=== PATIENT | female | born 1955 | race Caucasian/White ===

== ENCOUNTER 2018-09-25 19:46 | Inpatient (IN) | payer MEDICARE, BC ==
[2018-09-25 20:20] LABS: #Basophils 0.1 thou/uL (0.0-0.2); #Lymphocytes 2.5 thou/uL (1.20-3.40); %Basophils 0.7 % (0.0-1.0); %Eosinophils 0.2 % (0.0-10.0); %Lymphocytes 16.8 % (21.0-51.0); %Monocytes 6.8 % (0.0-10.0); %Neutrophils 75.5 % (42.0-75.0); Hemoglobin 11.5 g/dL (12.0-16.0); Mean Corpuscular Hemoglobin 33.2 pg (27.0-31.0); Mean Platelet Volume 8.4 fL (7.4-10.4); Platelet Count 354 thou/uL (130-400); RBC Distribution Width 10.7 % (11.5-14.5); Red Blood Cell (RBC) Count 3.48 mill/uL (4.20-5.40); White Blood Cell (WBC) Count 14.5 thou/uL (4.8-10.8)
[2018-09-25] MEDS ORDERED: Lidocaine 1% w/Epinephrine 1:100K 20 ML VIAL ONE (20:25)
[2018-09-25] MEDS ORDERED: KETAMINE 100 MG/ML (5ML VIAL) ONE (20:25)
--- NOTE | 2018-09-25 20:39 | RAD ---
CHEST ONE VIEW: 09/25/18 INDICATION: Fell at home with left sided chest pain. COMPARISON: Prior exam dated 07/31/18. FINDINGS: There is a moderate sized left sided pneumothorax. There is mildly displaced posterior left 6th rib. There is a nondisplaced left fourth rib fracture. T he right lung is clear. The heart size is normal. ACDF is seen involving the lower cervical spine. IMPRESSION: Left posterior 4th and 6th rib fractures with a moderate sized left pneumothorax. Findings were call ed to Dr. Tovar at 8:22 p.m. on 09/25/18. Code CR POS: [facility]
[2018-09-25 20:41] LABS: ALT (SGPT) 15 U/L (8-55); AST (SGOT) 21 U/L (5-34); Albumin 4.7 g/dL (3.4-4.8); Alkaline Phosphatase 86 U/L (40-150); Anion Gap 16 mmol/L (10-20); BUN (Urea Nitrogen) 25 mg/dL (9.8-20.1); Bilirubin, Total 0.4 mg/dL (0.2-1.2); Calc. Creatinine Clearance 0 mL/min (70-130); Calcium 9.3 mg/dL (7.8-10.44); Carbon Dioxide 21 mmol/L (23-31); Chloride 103 mmol/L (98-107); Estimated GFR-MDRD 24; Globulin 3.4 g/dL (2.4-3.5); Glucose 101 mg/dL (80-115); Potassium 3.5 mmol/L (3.5-5.1); Protein, Total 8.1 g/dL (6.0-8.3); Sodium 136 mmol/L (136-145)
[2018-09-25 20:46] LABS: CKMB 2.8 ng/mL (0-6.6); Troponin I Less than 0.010 ng/mL (< 0.028)
[2018-09-25] MEDS ORDERED: Dextrose 50% Abboject 50 ML SYRINGE SLOW IVP PRN (20:52)
[2018-09-25] MEDS ORDERED: Ondansetron PF 4 MG/2 ML Vial IVP PRN (20:52)
[2018-09-25] MEDS ORDERED: Dextrose 5% in Water 1,000 ML IV PRN (20:52)
[2018-09-25] MEDS ORDERED: Ondansetron ODT 4 MG TAB PO PRN (20:52)
[2018-09-25] MEDS ORDERED: Rib Fracture Protocol PO SCH (21:00)
[2018-09-25] MEDS ORDERED: Senokot S 8.6-50 MG TAB PO SCH ×2 (21:00→23:59)
[2018-09-25] MEDS ORDERED: HYDROcodone/Acetaminophen 5/325 mg Tablet PO PRN (21:01)
[2018-09-25] MEDS ORDERED: Lorazepam 2 MG/ML VIAL ONE (21:07)
[2018-09-25] MEDS ORDERED: Morphine 2 MG/ML SYRINGE ONE (21:18)
[2018-09-25] MEDS ORDERED: Ondansetron PF 4 MG/2 ML Vial ONE (21:33)
[2018-09-25] MEDS ORDERED: Cyclobenzaprine 10 MG TAB ONE (21:39)
--- NOTE | 2018-09-25 21:42 | RAD ---
AP VIEW CHEST: 09/25/18 HISTORY: Status post chest tube placement. AP view chest is obtained on 09/25/18. Comparison made to previous exam from earlier in the day on 09/25/18. AP view chest demonstrates placement of a large caliber left sided chest tube. Large left sided pneum othorax has significantly decreased in size. A minimal left sided pneumothorax remains. The majority of the left lung has re-expanded. IMPRESSION: Placement of a large caliber left sided chest tube. There is some minimal left apical pneumothorax re maining, otherwise the left lung has re-expanded. The right lung is well aerated. POS: [facility]
[2018-09-25] MEDS ORDERED: Acetaminophen 325 MG TAB PO SCH (22:00)
--- NOTE | 2018-09-25 22:23 | CT ---
CT OF THE BRAIN WITHOUT CONTRAST: 09/25/18 INDICATION: History of fall at home. COMPARISON: None. FINDINGS: There is mild to moderate chronic small vessel white matter ischemic change. Septum pellucidum and third ventricle are midline. No acute infarct, hemorrhage or hydrocephalus pres ent. Skull and extracranial soft tissues appear within normal limits. 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 IMPRESSION: No acute intracranial abnormality. POS: [facility]
[2018-09-25 23:49] VITALS: BMI 20.5
[2018-09-25] MEDS ORDERED: traMADol HCl 50 MG TAB PO SCH (23:59)
[2018-09-26] MEDS: Acetaminophen 325 MG TAB PO SCH ×4 (00:31→18:09)
[2018-09-26] MEDS: HYDROcodone/Acetaminophen 10/325 mg Tablet PO PRN ×2 (01:46→08:08)
[2018-09-26] MEDS ORDERED: Amitriptyline HCl 25 MG TAB PO SCH ×2 (02:00→21:00)
--- NOTE | 2018-09-26 04:15 | HP ---
DATE OF ADMISSION: 09/25/2018 TRAUMA ACTIVATION: Not applicable. HISTORY OF PRESENT ILLNESS: Tamia De Guzman is a 62-year-old female who presented to [place] ER wit h a chief complaint of dyspnea, status post fall. Per patient, she was attempting to ambulate in her kitchen when she felt lightheaded and dizzy, causing her to fall, striking her left-sided chest and head. She denies loss of consciousness. The patient reports that over the last 2-3 days, she has be en having her blood pressure medications altered by her primary care physician. She reports the way she felt this evening is similar to previous hypotensive episodes. She denies chest pain; however, s he did endorse some nausea. She was evaluated in the emergency room and found to have multiple left- sided rib fractures with a left pneumothorax. A chest tube was placed by the ER physician with good reexpansion of the lung. Trauma Services notified and asked to admit. Upon my evaluation, the patie nt has a chief complaint of left-sided muscle spasm and dyspnea. She rates her pain as a 10/10. Of note, the patient profound was hypotensive with a systolic blood pressure in the 80s per EMS report. She did receive 600 mL of IV fluids and presented with a blood pressure in the 120s. ALLERGIES: GABAPENTIN, LYRICA, METOPROLOL, NSAIDs to include IBUPROFEN, ALEVE, and . HOME MEDICATIONS: Include atorvastatin 20 mg daily, atenolol 50 mg daily, Klonopin 1 mg b.i.d., tram adol 300 mg daily, amitriptyline 25 mg daily, Lexapro 20 mg daily, losartan 100 mg and an additional antihypertensive, the name and dosage of which the patient is unsure. PAST MEDICAL HISTORY: Significant for hypertension, anxiety, chronic pain, hyperlipidemia, depressio n, and irritable bowel syndrome. PAST SURGICAL HISTORY: Includes tubal ligation, breast biopsy, cholecystectomy, multiple left foot s urgeries, spinal surgery, hip surgery, left hand/thumb surgery, left knee surgery, right foot surgery , and right arm surgery. SOCIAL HISTORY: Patient is . She denies alcohol or illicit drug use. She is a current smoke r, 1-2 cigarettes daily. FAMILY HISTORY: Significant for father with CAD, mother with CAD, a brother with CAD and prostate ca ncer. REVIEW OF SYSTEMS: A 10-point review of systems was performed and essentially negative except as ind icated in the HPI. PHYSICAL EXAMINATION: VITAL SIGNS: Temperature 97.9, pulse 81, respiration rate 18, O2 sat 100% on 2 liters nasal cannula, blood pressure 140/80. GENERAL: Elderly-appearing female in mild distress secondary to pain. HEAD: Normocephalic. EYES: Pupils are PERRLA. Extraocular movements are intact. NECK: Supple. Trachea is midline. There is no midline tenderness to palpation. CHEST AND PULMONARY: Atraumatic with left-sided tenderness to palpation. Short inspiratory breath. Symmetric chest rise. LUNGS: Clear to auscultation bilaterally. CARDIOVASCULAR: Regular rate and rhythm. No obvious murmurs, rubs, or gallops. Midline incisional scar is noted. ABDOMEN: Soft, nontender, nondistended. Bowel sounds are positive. MUSCULOSKELETAL: Pelvis is stable. BACK: Reported as being within normal limits. EXTREMITIES: Bilateral upper extremities within normal limits. Bilateral lower extremities within n ormal limits. Pulses are 2+ bilaterally. Strength 5/5 bilaterally. NEUROLOGIC: GCS is 15 and no focal deficit is noted. LABORATORY FINDINGS: WBC 14.5, hemoglobin 11.5, hematocrit 34.9, platelet count 354. D-dimer 1.58. Sodium 136, potassium 3.5, chloride 103, carbon dioxide 21, BUN 25, creatinine 2.06, glucose 101. L actic acid 1.9. AST and ALT within normal limits. Troponin less than 0.010. BNP 54.8. EKG: Normal sinus rhythm. RADIOLOGIC FINDINGS: Initial chest x-ray with multiple left-sided rib fractures and a [id number] rge left-sided pneumothorax. A repeat EKG, status post chest tube shows a small residual apical pneu mothorax and left-sided rib fractures. CT of the brain was negative for acute intracranial abnormali ty. ASSESSMENT: 1. Status post fall. 2. Presyncope/syncope likely secondary to orthostatic hypotension. 3. Elevated D-dimer, unlikely pulmonary embolism as dyspnea occurred status post fall, but not prior . 4. Acute kidney injury, present on admission. 5. History of hypertension with intermittent hypotension and possible orthostatic hypotension. 6. History of anxiety and depression. 7. History of chronic pain. PLAN: Admit to Trauma Services. Importance of incentive spirometry and pulmonary toileting discusse d with the patient extensively. Given patient's chronic Ultram use and chronic pain with reported al lergy to NSAIDs will adjust rib fracture protocol accordingly. Repeat chest x-ray in a.m. labs. Giv en patient's hypotension on initial evaluation by EMS, we will hold antihypertensives at this time an d restart them with closer observation and monitoring. Plan for admission was discussed with the pat ient and family at bedside and all questions were answered at the time of this dictation. Trauma att ending has been notified of admission.
[2018-09-26 05:57] LABS: #Basophils 0.2 thou/uL (0.0-0.2); #Lymphocytes 3.8 thou/uL (1.20-3.40); #Monocytes 0.9 thou/uL (0.11-0.59); #Neutrophils 6.5 thou/uL (1.40-6.50); %Basophils 1.4 % (0.0-1.0); %Eosinophils 0.3 % (0.0-10.0); %Lymphocytes 33.3 % (21.0-51.0); %Monocytes 7.9 % (0.0-10.0); %Neutrophils 57.2 % (42.0-75.0); Hemoglobin 8.8 g/dL (12.0-16.0); Mean Corpuscular HGB CONC 33.2 g/dL (32.0-36.0); Mean Corpuscular Hemoglobin 33.6 pg (27.0-31.0); Platelet Count 269 thou/uL (130-400); RBC Distribution Width 10.8 % (11.5-14.5); Red Blood Cell (RBC) Count 2.63 mill/uL (4.20-5.40); White Blood Cell (WBC) Count 11.4 thou/uL (4.8-10.8)
[2018-09-26 06:05] LABS: Anion Gap 9 mmol/L (10-20); BUN (Urea Nitrogen) 23 mg/dL (9.8-20.1); Calc. Creatinine Clearance 30 mL/min (70-130); Calcium 8.7 mg/dL (7.8-10.44); Carbon Dioxide 24 mmol/L (23-31); Chloride 106 mmol/L (98-107); Estimated GFR-MDRD 34; Glucose 95 mg/dL (80-115); Magnesium 2.2 mg/dL (1.6-2.6); Phosphorus 3.8 mg/dL (2.3-4.7); Potassium 3.9 mmol/L (3.5-5.1); Sodium 135 mmol/L (136-145)
[2018-09-26] MEDS: Cyclobenzaprine 10 MG TAB PO PRN ×2 (06:14→18:11)
[2018-09-26 07:46] LABS: Bilirubin Negative (Negative); Blood, Urine Negative (Negative); Clarity CLOUDY (Clear); Glucose, Urine (Dipstick) Negative (Negative); Leukocyte Small (Negative); Nitrite Positive (Negative); Protein, Urine (Dipstick) Negative (Neg-Trace); Specific Gravity, Urine 1.011 (1.002-1.036); Urobilinogen 0.2 mg/dL (0.2-1.0)
[2018-09-26 07:49] LABS: Bacteria/HPF Rare-Few HPF (None Seen); Hyaline Casts/LPF 4-6 HYALINE CAST LPF (0-3 Hyaline); Pathc Cast-AUWi Flag 0.14 (0-2.49); RBC/HPF 0-3 HPF (0-3); Squamous Epithelial 0-3 HPF (0-3)
[2018-09-26] MEDS: Senokot S 8.6-50 MG TAB PO SCH ×2 (08:06→20:14)
[2018-09-26] MEDS: Polyethylene Glycol 3350 17 GM Packet PO SCH (08:08)
[2018-09-26] MEDS ORDERED: Ascorbic Acid 500 mg Chewable Tablet PO SCH (09:00)
[2018-09-26] MEDS ORDERED: SUMAtriptan Succinate 50 MG TAB PO PRN (10:49)
[2018-09-26] MEDS: traMADol HCl 50 MG TAB PO SCH ×3 (12:03→21:25)
--- NOTE | 2018-09-26 12:10 | PRG-2 ---
DATE OF SERVICE: 09/26/2018 RESIDENT: Анна Urias M.D. ATTENDING: Sid Saini D.O. SUBJECTIVE: The patient is resting in bed on exam. The patient states she is not doing well overall and is concerned about restarting her home medications. The patient states that she is in a moderate amount of pain. Left sided chest tube is in place. Patient tolerating PO. OBJECTIVE: VITAL SIGNS: Temperature 98.1, pulse 76, respirations 17-24, O2 saturation 100 % on room air, BP 107/60. GENERAL: No acute distress, the patient is resting in bed. RESPIRATORY: Bilateral symmetrical chest rise, nonlabored breathing, clear to auscultation bilaterally, chest tube in place, hooked up to suction. CARDIOVASCULAR: Regular rate and rhythm. No murmurs, rubs or gallops. ABDOMEN: Soft, nontender, nondistended. NEUROLOGIC: Nonfocal exam. PSYCHIATRIC: Alert and oriented x3. LABORATORY DATA: WBC 11.4, hemoglobin 8.8, hematocrit 26.6, platelet 269,000. Sodium 135, potassium 3.9, chloride 106, carbon dioxide 24, anion gap 9, BUN 23 , creatinine 1.54. Calcium, phosphorus and magnesium within normal limits. ASSESSMENT: 1. Status post fall, found to have left posterior fourth and sixth rib fractures with a moderate sized left pneumothorax. 2. Acute kidney injury, resolving. 3. History of chronic pain. 4. History of anxiety and depression. 5. History of hypertension with intermittent hypotension and possible orthostatic hypotension. 6. Acute traumatic pain. PLAN: The patient's pain medications have been adjusted and the patient will be getting Tylenol and Ultram scheduled. The patient's home medications have been reconciled and restarted. Deep venous thrombosis prophylaxis initiated. Put chest tube to water seal. Due to the patient's drop in hemoglobin, the patient was started on iron and vitamin C b.i.d. The patient will be getting a repeat chest x-ray tomorrow morning. Physical and Occupational Therapy have been consulted to work with the patient. Continue to encourage incentive spirometry and pulmonary toileting. The patient has been started on a bowel regimen. We will follow up BMP with tomorrow's labs to see if CHICA is resolving , currently already improved. The patient was seen and evaluated by Dr. Saini at the bedside during rounds. All questions were asked and answered and the patient was in agreement with the plan. MTDD
[2018-09-26] MEDS: Morphine 2 MG/ML SYRINGE SLOW IVP PRN (20:07)
[2018-09-26] MEDS: Amitriptyline HCl 25 MG TAB PO SCH (20:14)
[2018-09-26] MEDS: clonazePAM 1 MG TAB PO SCH (20:14)
[2018-09-26] MEDS: Heparin 5,000 UNITS/ML VIAL SC SCH (20:15)
[2018-09-26] MEDS: Sulfameth/Trimethoprim DS 800-160mg TAB PO SCH (21:26)
[2018-09-26] MEDS: Ascorbic Acid 500 mg Chewable Tablet PO SCH (21:46)
[2018-09-27] MEDS: Acetaminophen 325 MG TAB PO SCH ×4 (00:22→17:32)
[2018-09-27] MEDS: traMADol HCl 50 MG TAB PO SCH ×4 (04:15→21:51)
[2018-09-27 07:09] LABS: #Lymphocytes 4.5 thou/uL (1.20-3.40); #Neutrophils 4.9 thou/uL (1.40-6.50); %Basophils 1.8 % (0.0-1.0); %Eosinophils 1.7 % (0.0-10.0); %Monocytes 9.2 % (0.0-10.0); %Neutrophils 45.3 % (42.0-75.0); Hemoglobin 9.7 g/dL (12.0-16.0); Mean Corpuscular HGB CONC 33.3 g/dL (32.0-36.0); Mean Corpuscular Hemoglobin 33.8 pg (27.0-31.0); Mean Platelet Volume 8.2 fL (7.4-10.4); Platelet Count 282 thou/uL (130-400); RBC Distribution Width 10.9 % (11.5-14.5); Red Blood Cell (RBC) Count 2.87 mill/uL (4.20-5.40); White Blood Cell (WBC) Count 10.8 thou/uL (4.8-10.8)
[2018-09-27 07:10] LABS: #Basophils 0.2 thou/uL (0.0-0.2); #Eosinphils 0.2 thou/uL (0.0-0.7)
[2018-09-27 07:27] LABS: Anion Gap 13 mmol/L (10-20); BUN (Urea Nitrogen) 12 mg/dL (9.8-20.1); Calc. Creatinine Clearance 46 mL/min (70-130); Calcium 8.4 mg/dL (7.8-10.44); Carbon Dioxide 21 mmol/L (23-31); Chloride 106 mmol/L (98-107); Estimated GFR-MDRD 56; Glucose 82 mg/dL (80-115); Phosphorus 3.2 mg/dL (2.3-4.7); Potassium 3.8 mmol/L (3.5-5.1); Sodium 136 mmol/L (136-145)
--- NOTE | 2018-09-27 08:03 | RAD ---
CHEST 1 VIEW: Date: 09/27/18 INDICATION: Left-sided pneumothorax. COMPARISON: Prior exam dated 09/25/18. IMPRESSION: Left-sided thoracostomy tube has been repositioned and projects near the midline. Small residual left apical pneumothorax remains. Left-sided chest wall emphysema is again seen. Chronic lung changes are similar. IMPRESSION: 1. Persistent small left apical pneumothorax. 2. Left-sided thoracostomy tube. 3. Left chest wall emphysema. POS: [facility]
[2018-09-27] MEDS: Ascorbic Acid 500 mg Chewable Tablet PO SCH ×2 (08:26→20:25)
[2018-09-27] MEDS: Atorvastatin Calcium 20 MG TAB PO SCH (08:26)
[2018-09-27] MEDS: clonazePAM 1 MG TAB PO SCH ×2 (08:26→20:26)
[2018-09-27] MEDS: Escitalopram Oxalate 20 mg Tablet PO SCH (08:27)
[2018-09-27] MEDS: Heparin 5,000 UNITS/ML VIAL SC SCH ×2 (08:27→20:26)
[2018-09-27] MEDS: Senokot S 8.6-50 MG TAB PO SCH ×2 (08:27→20:27)
[2018-09-27] MEDS: Polyethylene Glycol 3350 17 GM Packet PO SCH (08:28)
[2018-09-27] MEDS: Sulfameth/Trimethoprim DS 800-160mg TAB PO SCH ×2 (08:37→20:27)
[2018-09-27] MEDS: Atenolol 50 MG TAB PO SCH (08:40)
[2018-09-27] MEDS ORDERED: Losartan 25 MG TAB PO SCH (09:00)
--- NOTE | 2018-09-27 10:19 | PRG-2 ---
DATE OF SERVICE: 09/27/2018 RESIDENT: Dr. Анна Urias ATTENDING: Dr. Sid Saini SUBJECTIVE: The patient is a 62-year-old female status post fall, found to have multiple left-sided rib fractures and moderate to large left-sided pneumothorax, now resolving with chest tube in place. On exam today the patient is resting comfortably in bed. The patient states she slept much better last night. The patient states that her pain is improved from yesterday. She reports pain is 4-5/10 and much more tolerable. The patient states that she participated in PT/OT yesterday where it was decided that she only needs physical therapy. The patient is tolerating p.o. OBJECTIVE: VITAL SIGNS: Temperature 98.3, pulse 78, respirations 16, O2 saturation 99% on room air, BP 115/67. GENERAL: No acute distress, resting in bed. RESPIRATORY: Bilateral symmetrical chest rise, nonlabored breathing. Clear to auscultation bilaterally, chest tube in place, water seal. CARDIOVASCULAR: Regular rate and rhythm. No murmurs, rubs, or gallops. ABDOMEN: Soft, nontender, nondistended. NEUROLOGIC: Nonfocal exam. PSYCHIATRIC: Normal mood and affect. LABORATORY DATA: WBCs 10.8, hemoglobin 9.7, hematocrit 29.2, platelets 282. Sodium 136, potassium 3.8, BUN 12, creatinine 0.99, Calcium, phosphorus, magnesium within normal limits. Radiological findings; persistent small left apical pneumothorax, left-sided thoracostomy tube, left chest wall emphysema. ASSESSMENT: 1. Status post fall with left fourth through sixth rib fractures with moderate sized left pneumothorax with chest tube in place. 2. Acute kidney injury, resolved. 3. History of chronic pain. 4. History of anxiety, depression. 5. History of hypertension with intermittent hypotension and possible orthostatic hypotension. 6. Acute traumatic pain. PLAN: The patient's pain has been adequately controlled overnight and today. We will continue monitoring pain control. Chest tube removed today with no issues or complications. The patient demonstrated use of incentive spirometry and was able to get over 1000. The patient's hemoglobin has improved. The patient will get a repeat chest x-ray tomorrow morning. The patient will continue with physical therapy. Continue to encourage incentive spirometry and pulmonary toileting. The patient was seen and evaluated by Dr. Saini. EMELIA
[2018-09-27] MEDS: Amitriptyline HCl 25 MG TAB PO SCH (20:25)
[2018-09-27] MEDS: Morphine 2 MG/ML SYRINGE SLOW IVP PRN (21:51)
[2018-09-28] MEDS ORDERED: Acetaminophen 500 MG TAB PO SCH (00:30)
[2018-09-28] MEDS: Acetaminophen 325 MG TAB PO SCH (00:50)
[2018-09-28] MEDS: traMADol HCl 50 MG TAB PO SCH ×2 (04:57→09:23)
[2018-09-28] MEDS: Acetaminophen 500 MG TAB PO SCH ×2 (06:11→11:47)
[2018-09-28 07:39] VITALS: TEMP 98
--- NOTE | 2018-09-28 08:04 | RAD ---
PORTABLE CHEST 1 VIEW: Date: 09/28/18 Time: 0715 hours HISTORY: Chest tube removal. FINDINGS/IMPRESSION: Comparison made with exam of previous day. There has been interval removal of the left-sided chest tube. A tiny left apical pneumothorax is pres ent. There is subcutaneous emphysema in the left lateral chest wall. Remainder of exam is otherwise s table. POS: [facility]
[2018-09-28] MEDS ORDERED: Furosemide 20 MG/2 ML VIAL SLOW IVP SCH (08:45)
[2018-09-28] MEDS: Atenolol 50 MG TAB PO SCH (09:08)
[2018-09-28] MEDS: Escitalopram Oxalate 20 mg Tablet PO SCH (09:23)
[2018-09-28] MEDS: Ascorbic Acid 500 mg Chewable Tablet PO SCH (09:23)
[2018-09-28] MEDS: Atorvastatin Calcium 20 MG TAB PO SCH (09:23)
[2018-09-28] MEDS: clonazePAM 1 MG TAB PO SCH (09:23)
[2018-09-28] MEDS: Sulfameth/Trimethoprim DS 800-160mg TAB PO SCH (09:23)
[2018-09-28] MEDS: Senokot S 8.6-50 MG TAB PO SCH (09:24)
[2018-09-28] MEDS: Heparin 5,000 UNITS/ML VIAL SC SCH (09:24)
[2018-09-28] MEDS: Polyethylene Glycol 3350 17 GM Packet PO SCH (09:30)
[2018-09-28 11:12] VITALS: BP 127/76
--- NOTE | 2018-09-28 17:50 | EKG ---
Test Reason : DYSPNEA Blood Pressure : / mmHG Vent. Rate : 079 BPM Atrial Rate : 079 BPM P-R Int : 128 ms QRS Dur : 076 ms QT Int : 388 ms P-R-T Axes : 042 075 079 degrees QTc Int : 444 ms Normal sinus rhythm Normal ECG Confirmed by SASCHA DOWNING ([id number]), science editor ELIZABETH RUSSELL ([id number]) on 09/28/2018 5:49:09 PM Referred By: Confirmed By:SASCHA DOWNING
--- NOTE | 2018-09-29 01:03 | DIS ---
DATE OF ADMISSION: 09/25/2018 DATE OF DISCHARGE: 09/28/2018 ADMISSION DIAGNOSES: 1. Status post fall. 2. Presyncope likely secondary to orthostatic hypotension. 3. Acute kidney injury present on admission. 4. History of hypertension. 5. History of anxiety and depression. 6. History of chronic pain. DISCHARGE DIAGNOSES: 1. Status post fall. 2. Presyncope likely secondary to orthostatic hypotension. 3. Acute kidney injury present on admission. 4. History of hypertension. 5. History of anxiety and depression. 6. History of chronic pain. CONSULTANTS: None. PROCEDURES: Chest tube placement on 09/25/2018 in the emergency room. HOSPITAL COURSE: Tamia De Guzman is a 62-year-old female who presented to [place] ER status post fa ll at home. Per patient, she has been having multiple ulcerations to her antihypertensives resulting in erratic blood pressures. Patient felt lightheaded and dizzy, falling and striking her left chest . She was seen and evaluated in the emergency room and found to have a significant pneumothorax. A chest tube was placed with good reexpansion of the lung. She was admitted by trauma services for tee n management and further treatment. Post-injury day #3, her chest tube was replaced. On 09/28/2018, a repeat chest x-ray was performed, which demonstrated a small apical pneumothorax; however, the pat ient was hemodynamically stable and on room air. Of note, in importance her blood pressure remained within normal limits despite not receiving any antihypertensives during her hospitalization. Because of her difficulty with blood pressure control and residual pneumothorax, patient was recommended for [facility] facility. She was accepted to [facility] and medically stable for disch arge on 09/28/2018. DISCHARGE DISPOSITION: care home facility. DISCHARGE CONDITION: Good. PHYSICAL EXAMINATION: VITAL SIGNS: Temperature 98.0, pulse 94, respirations 18, O2 sat 97% on room air, blood pressure 127 /76. GENERAL: Elderly appearing female in no acute distress, sitting in bed. PULMONARY: Normal work of breathing, symmetric rise. CARDIOVASCULAR: Regular rate and rhythm. GASTROINTESTINAL: Abdomen is soft, nontender, nondistended. MUSCULOSKELETAL: Moves all extremities x4. NEUROLOGIC: No focal deficit is noted. DISCHARGE INSTRUCTIONS: Discharge instructions were provided to the patient, who vocalized her under standing. She is to leave her chest tube dressing in place for an additional 24 hours. At that time , she may remove it and covered the area with a simple bandage. She should have a repeat chest x-ray on 09/29/2018 and a repeat chest x-ray in approximately 2 weeks. She may resume activities as kameron ated. These instructions were provided to both the patient and the accepting facility. DISCHARGE MEDICATIONS: Discharge medications as documented in the electronic medical record a list o f which was provided to the accepting facility. FOLLOWUP APPOINTMENTS: Patient should follow up with her primary care provider after being discharge d from her [facility] facility for blood pressure management. She should follow up with Trauma Services in approximately 2 weeks with a repeat chest x-ray prior to her appointment. This is merely a summary of the patient's hospitalization, for more in depth information, please see her medical re cord in its entirety.
== END 2018-09-28 14:37 | disposition swing bed (61) | DRG 200 ==
LOC: ERS 19:46 → SJJU 20:40
PROVIDERS: ADMIT Surgery; ATTEND Surgery
PROC: 0W9B30Z Drainage of Left Pleural Cavity with Drainage Device, Percutaneous Approach (ICD-10-PCS; principal; 2018-09-25)
DX: S27.0XXA Traumatic pneumothorax, initial encounter (principal); S22.42XA Multiple fractures of ribs, left side, initial encounter for closed fracture; N17.9 Acute kidney failure, unspecified; I95.1 Orthostatic hypotension; I10 Essential (primary) hypertension; E78.5 Hyperlipidemia, unspecified; K58.9 Irritable bowel syndrome, unspecified; G89.29 Other chronic pain; F32.9 Major depressive disorder, single episode, unspecified; F41.9 Anxiety disorder, unspecified; Z79.1 Long term (current) use of non-steroidal anti-inflammatories (NSAID); Z88.8 Allergy status to other drugs, medicaments and biological substances; Z88.6 Allergy status to analgesic agent; W18.30XA Fall on same level, unspecified, initial encounter; Y92.000 Kitchen of unspecified non-institutional (private) residence as the place of occurrence of the external cause
CPT/HCPCS: 32551; 36415; 70450; 71045; 80048; 80053; 81003; 81015; 82553; 83605; 83735; 83880; 84100; 84484; 85025; 85379; 87077; 87086; 87186; 93005; 96374; 96375; G0390; G8978-GP-CJ; G8979-GP-CI; G8987-GO-CI; G8988-GO-CI; G8989-GO-CI; J1644; J2001; J2060; J2270; J2405

== ENCOUNTER 2018-10-17 09:13 | Outpatient (CLI) | payer MEDICARE, BC ==
--- NOTE | 2018-10-17 11:22 | RAD ---
TWO VIEW CHEST: Comparison: 10-08-18 Indication: Traumatic pneumothorax follow up. FINDINGS: There has been interval improvement with a minute residua of the left apical pneumothorax remaining o n the current exam. Right lung is clear. Chest is otherwise stable. IMPRESSION: 1. Minimal residual left apical pneumothorax persists. Smaller in volume than prior exam. 2. Re-demonstration of left rib deformities. POS: [facility]
== END 2018-10-17 09:14 | disposition home or self-care (01) ==
LOC: RAD 09:13
PROVIDERS: ATTEND Family Medicine
DX: S27.0XXD Traumatic pneumothorax, subsequent encounter (principal); M95.4 Acquired deformity of chest and rib
CPT/HCPCS: 71046

== ENCOUNTER 2020-08-27 09:33 | Outpatient (CLI) | payer MEDICARE, BC ==
--- NOTE | 2020-08-27 10:32 | BD ---
EXAM: Bone densitometry using DEXA HISTORY: 64 yo female. Screening for postmenopausal osteoporosis FINDINGS: L1--bone mineral density 0.800 g/sq cm; T score -1.7 ; Z score 0.0 L2--bone mineral density 0.853 g/sq cm; T score -1.6 ; Z score 0.3 L3--bone mineral density 0.886 g/sq cm; T score -1.8 ; Z score 0.2 L4--bone mineral density 0.894 g/sq cm; T score -1.5 ; Z score 0.5 Total L1-L4--bone mineral density 0.863 g/sq cm; T score -1.7 ; Z score 0.2 Left femoral neck--bone mineral density0.589; T score -2.3 ; Z score -0.7 Total proximal left femur--bone mineral density 0.784; T score -1.3 ; Z score 0.0 IMPRESSION: Osteopenia
--- NOTE | 2020-08-27 14:42 | MMO ---
Bilateral MAMMO Bilat Screen [facility]. CLINICAL HISTORY: Patient is 64 years old and is seen for screening. The patient has the following family history of breast cancer: paternal grandmother, malignant (generic). The patient has no personal history of cancer. The patient has a history of right Excisional Biopsy at age 39 - benign. VIEWS: The views performed were: bilateral craniocaudal with tomosynthesis and bilateral mediolateral oblique with tomosynthesis. FILMS COMPARED: The present examination has been compared to prior imaging studies performed at [facility] on 09/03/2014, 01/27/2016, 08/15/2017 and 08/28/2018. This study has been interpreted with the assistance of computer-aided detection. MAMMOGRAM FINDINGS: The breasts are heterogeneously dense, which could obscure a lesion on mammography. There are stable benign appearing calcifications seen in both breasts. There are no suspicious masses, suspicious calcifications, or new areas of architectural distortion. IMPRESSION: THERE IS NO MAMMOGRAPHIC EVIDENCE OF MALIGNANCY. A ROUTINE FOLLOW-UP MAMMOGRAM IN 1 YEAR IS RECOMMENDED. THE RESULTS OF THIS EXAM WERE SENT TO THE PATIENT. ACR BI-RADS Category 2 - Benign finding MAMMOGRAPHY NOTE: 1. A negative mammogram report should not delay a biopsy if a dominant of clinically suspicious mass is present. 2. Approximately 10% to 15% of breast cancers are not detected by mammography. 3. Adenosis and dense breasts may obscure an underlying neoplasm. Reported by: ANGE BATES MD Electonically Signed: [id number]
== END 2020-08-27 09:34 | disposition home or self-care (01) ==
LOC: BICMAMMO 09:33
PROVIDERS: ATTEND Family Medicine
DX: Z12.31 Encounter for screening mammogram for malignant neoplasm of breast (principal); Z78.0 Asymptomatic menopausal state; M81.0 Age-related osteoporosis without current pathological fracture; M85.88 Other specified disorders of bone density and structure, other site; Z91.89 Other specified personal risk factors, not elsewhere classified; Z80.3 Family history of malignant neoplasm of breast
CPT/HCPCS: 77063; 77067; 77080

== ENCOUNTER 2021-08-30 12:32 | Outpatient (CLI) | payer MEDICARE, BC | END 2021-08-30 12:33 | disposition home or self-care (01) | LOC: BICMAMMO 12:32 | PROVIDERS: ATTEND Obstetrics & Gynecology | DX: Z12.31 Encounter for screening mammogram for malignant neoplasm of breast (principal); Z80.3 Family history of malignant neoplasm of breast; Z91.89 Other specified personal risk factors, not elsewhere classified | CPT/HCPCS: 77063; 77067 ==

== ENCOUNTER 2022-09-01 10:55 | Outpatient (CLI) | payer MEDICARE, BC | END 2022-09-01 10:56 | disposition home or self-care (01) | LOC: BICMAMMO 10:55 | PROVIDERS: ATTEND Obstetrics & Gynecology | DX: Z12.31 Encounter for screening mammogram for malignant neoplasm of breast (principal); Z80.3 Family history of malignant neoplasm of breast; Z91.89 Other specified personal risk factors, not elsewhere classified | CPT/HCPCS: 77063; 77067 ==

== ENCOUNTER 2023-01-03 15:14 | Outpatient (CLI) | payer MEDICARE, BC | END 2023-01-03 15:15 | disposition home or self-care (01) | LOC: BICRAD 15:14 | PROVIDERS: ATTEND Family Medicine | DX: M54.2 Cervicalgia (principal); M47.812 Spondylosis without myelopathy or radiculopathy, cervical region; M25.78 Osteophyte, vertebrae; R29.890 Loss of height | CPT/HCPCS: 72052 ==

== ENCOUNTER 2023-03-05 10:43 | Emergency (ER) | payer MEDICARE, BC ==
[2023-03-05] MEDS ORDERED: Boostrix 0.5 ML (Tdap) VIAL (>/=7 yrs of age) ONE (11:35)
== END 2023-03-05 12:01 | disposition home or self-care (01) ==
LOC: ERS 10:43
DX: L03.011 Cellulitis of right finger (principal); I10 Essential (primary) hypertension; K58.9 Irritable bowel syndrome, unspecified; E78.00 Pure hypercholesterolemia, unspecified; F17.210 Nicotine dependence, cigarettes, uncomplicated; Z23 Encounter for immunization; Z79.899 Other long term (current) drug therapy
CPT/HCPCS: 90471; 90715

== ENCOUNTER 2023-09-11 18:47 | Inpatient (IN) | payer MEDICARE, BC ==
[2023-09-11 22:40] VITALS: BMI 22.2
[2023-09-11] MEDS ORDERED: Ondansetron PF 4 MG/2 ML Vial IVP PRN (23:02)
[2023-09-11] MEDS ORDERED: Ondansetron ODT 4 MG TAB PO PRN (23:02)
[2023-09-11] MEDS ORDERED: Acetaminophen 650 MG Suppository PR PRN (23:02)
[2023-09-11] MEDS ORDERED: clonazePAM 1 MG TAB PO PRN (23:12)
[2023-09-11] MEDS ORDERED: Sodium Chloride 0.9% 1,000 ML IV SCH (23:15)
[2023-09-11] MEDS: traMADol HCl 50 MG TAB PO PRN (23:38)
[2023-09-12] MEDS: traMADol HCl 50 MG TAB PO PRN ×3 (05:06→23:04)
[2023-09-12] MEDS: cefTRIAXone\\ROCEPHIN 1 GM in Sodium Chloride 0.9% 100 ML IVPB SCH (05:06)
[2023-09-12 05:28] LABS: #Monocytes 1.1 thou/uL (0.11-0.59); #Neutrophils 7.7 thou/uL (1.40-6.50); %Basophils 0.2 % (0.0-1.0); %Eosinophils 0.2 % (0.0-10.0); %Lymphocytes 27.7 % (21.0-51.0); %Neutrophils 62.6 % (42.0-75.0); Hematocrit 33.4 % (36.0-47.0); Hemoglobin 10.9 g/dL (12.0-16.0); Mean Corpuscular HGB CONC 32.6 g/dL (32.0-36.0); Mean Corpuscular Hemoglobin 29.6 pg (27.0-31.0); Mean Corpuscular Volume 90.8 fl (78.0-98.0); Mean Platelet Volume 10.9 fL (7.4-10.4); Platelet Count 284 10x3/uL (130-400); RBC Distribution Width 12.7 % (11.5-14.5); Red Blood Cell (RBC) Count 3.68 mill/uL (4.20-5.40); White Blood Cell (WBC) Count 12.3 10x3/uL (4.8-10.8)
[2023-09-12 05:52] LABS: Anion Gap 14 mmol/L (10-20); BUN (Urea Nitrogen) 11 mg/dL (9.8-20.1); Calc. Creatinine Clearance 60 mL/min (70-130); Calcium 8.8 mg/dL (7.8-10.44); Carbon Dioxide 24 mmol/L (23-31); Chloride 105 mmol/L (98-107); Estimated GFR 86; Glucose 82 mg/dL (80-115); Potassium 4.1 mmol/L (3.5-5.1); Sodium 139 mmol/L (136-145)
[2023-09-12] MEDS: Acetaminophen 325 MG TAB PO PRN ×2 (15:46→23:04)
[2023-09-13] MEDS: cefTRIAXone\\ROCEPHIN 1 GM in Sodium Chloride 0.9% 100 ML IVPB SCH (05:42)
[2023-09-13] MEDS: Acetaminophen 325 MG TAB PO PRN ×2 (08:19→20:39)
[2023-09-13] MEDS: traMADol HCl 50 MG TAB PO PRN ×2 (08:22→20:39)
[2023-09-13] MEDS ORDERED: Non-Formulary Item 1 EACH (Acetaminophen/Diphenhydramine [Tylenol Pm Exstr 500-25mg Cplt] PO PRN (09:27)
[2023-09-13] MEDS ORDERED: Atorvastatin Calcium 20 MG TAB PO SCH (09:30)
[2023-09-13] MEDS ORDERED: Amlodipine 5 MG TAB PO SCH (09:30)
[2023-09-13] MEDS ORDERED: Atenolol 50 MG TAB PO SCH (09:30)
[2023-09-13] MEDS ORDERED: clonazePAM 1 MG TAB PO SCH (09:30)
[2023-09-13] MEDS ORDERED: Methocarbamol 500 MG TAB PO PRN (10:43)
[2023-09-13] MEDS: clonazePAM 1 MG TAB PO SCH (20:38)
[2023-09-14 05:43] LABS: #Basophils 0.1 thou/uL (0.0-0.2); #Eosinphils 0.1 thou/uL (0.0-0.7); #Neutrophils 5.6 thou/uL (1.40-6.50); %Basophils 0.7 % (0.0-1.0); %Lymphocytes 35.9 % (21.0-51.0); %Monocytes 9.2 % (0.0-10.0); %Neutrophils 52.8 % (42.0-75.0); Hematocrit 37.7 % (36.0-47.0); Hemoglobin 12.6 g/dL (12.0-16.0); Mean Corpuscular HGB CONC 33.4 g/dL (32.0-36.0); Mean Corpuscular Hemoglobin 29.4 pg (27.0-31.0); Mean Corpuscular Volume 88.1 fl (78.0-98.0); Mean Platelet Volume 10.9 fL (7.4-10.4); Platelet Count 344 10x3/uL (130-400); RBC Distribution Width 12.7 % (11.5-14.5); Red Blood Cell (RBC) Count 4.28 mill/uL (4.20-5.40); White Blood Cell (WBC) Count 10.6 10x3/uL (4.8-10.8)
[2023-09-14 06:05] LABS: Anion Gap 11 mmol/L (10-20); BUN (Urea Nitrogen) 12 mg/dL (9.8-20.1); Calc. Creatinine Clearance 57 mL/min (70-130); Calcium 9.9 mg/dL (7.8-10.44); Carbon Dioxide 26 mmol/L (23-31); Chloride 104 mmol/L (98-107); Estimated GFR 81; Glucose 87 mg/dL (80-115); Potassium 3.4 mmol/L (3.5-5.1); Sodium 138 mmol/L (136-145)
[2023-09-14] MEDS: cefTRIAXone\\ROCEPHIN 1 GM in Sodium Chloride 0.9% 100 ML IVPB SCH (06:11)
[2023-09-14] MEDS: traMADol HCl 50 MG TAB PO PRN ×2 (06:17→16:10)
[2023-09-14] MEDS ORDERED: Electrolyte Replacement Protocol 1 EACH FS PRN (08:40)
[2023-09-14] MEDS ORDERED: Electrolyte Replacement Protocol FS PRN (08:45)
[2023-09-14] MEDS: clonazePAM 1 MG TAB PO SCH ×2 (09:00→20:20)
[2023-09-14] MEDS: Escitalopram Oxalate 10 mg Tablet PO SCH (09:00)
[2023-09-14] MEDS: Potassium Chloride 20 MEQ TAB PO SCH ×2 (09:00→13:42)
[2023-09-14] MEDS: Atorvastatin Calcium 20 MG TAB PO SCH (09:00)
[2023-09-14] MEDS: Multivitamin W/ Minerals 1 TAB PO SCH (09:00)
[2023-09-14] MEDS ORDERED: FLU VACC QS2023(65UP)/MF59C/PF 60 MCG/0.5 ML SYRINGE IM ONE (09:00)
[2023-09-14] MEDS: Atenolol 50 MG TAB PO SCH (09:00)
[2023-09-14] MEDS: Amlodipine 5 MG TAB PO SCH (09:00)
[2023-09-14 17:16] LABS: Potassium 4.3 mmol/L (3.5-5.1)
[2023-09-14] MEDS: Acetaminophen 325 MG TAB PO PRN (20:25)
[2023-09-15] MEDS: traMADol HCl 50 MG TAB PO PRN ×3 (00:17→15:38)
[2023-09-15] MEDS: Acetaminophen 325 MG TAB PO PRN (00:18)
[2023-09-15] MEDS: cefTRIAXone\\ROCEPHIN 1 GM in Sodium Chloride 0.9% 100 ML IVPB SCH (05:38)
[2023-09-15 08:05] VITALS: TEMP 97.9
[2023-09-15] MEDS: clonazePAM 1 MG TAB PO SCH (09:13)
[2023-09-15] MEDS: Multivitamin W/ Minerals 1 TAB PO SCH (09:13)
[2023-09-15] MEDS: Amlodipine 5 MG TAB PO SCH (09:13)
[2023-09-15] MEDS: Atorvastatin Calcium 20 MG TAB PO SCH (09:13)
[2023-09-15] MEDS: Atenolol 50 MG TAB PO SCH (09:13)
[2023-09-15] MEDS: Escitalopram Oxalate 10 mg Tablet PO SCH (09:13)
[2023-09-15 10:20] VITALS: BP 157/85
[2023-09-16] MEDS ORDERED: Cefdinir 300 MG CAP PO SCH (09:00)
== END 2023-09-15 16:00 | disposition home or self-care (01) | DRG 690 ==
LOC: T4-A 21:52 → OBSVTOIN 09-12 10:48
PROVIDERS: ADMIT Hospitalist; ATTEND Hospitalist
DX: N39.0 Urinary tract infection, site not specified (principal); I10 Essential (primary) hypertension; E78.5 Hyperlipidemia, unspecified; F41.9 Anxiety disorder, unspecified; Z79.899 Other long term (current) drug therapy; Z90.49 Acquired absence of other specified parts of digestive tract; Z98.890 Other specified postprocedural states; Z88.8 Allergy status to other drugs, medicaments and biological substances; Z98.51 Tubal ligation status
CPT/HCPCS: 36415; 36416; 80048; 85025; J0696; J2405; J3490; J7050

== ENCOUNTER 2024-05-07 12:18 | Outpatient (CLI) | payer MEDICARE, BC | END 2024-05-07 12:19 | disposition home or self-care (01) | LOC: BICCT 12:18 | PROVIDERS: ATTEND Urology | DX: Z12.2 Encounter for screening for malignant neoplasm of respiratory organs (principal); F17.210 Nicotine dependence, cigarettes, uncomplicated | CPT/HCPCS: 71271 ==

== ENCOUNTER 2024-05-10 10:23 | Outpatient (CLI) | payer MEDICARE, BC | END 2024-05-10 10:24 | disposition home or self-care (01) | LOC: BICCT 10:23 | PROVIDERS: ATTEND Physician Assistant Medical | DX: R10.11 Right upper quadrant pain (principal); R14.0 Abdominal distension (gaseous); R63.5 Abnormal weight gain; R19.4 Change in bowel habit; R19.5 Other fecal abnormalities; I70.0 Atherosclerosis of aorta; I70.8 Atherosclerosis of other arteries; Z90.49 Acquired absence of other specified parts of digestive tract | CPT/HCPCS: 74177 ==

== ENCOUNTER 2024-11-04 11:32 | Emergency (ER) | payer MEDICARE, BC ==
[2024-11-04] MEDS ORDERED: HYDROcodone/Acetaminophen 5/325 mg Tablet ONE (13:37)
== END 2024-11-04 13:46 | disposition home or self-care (01) ==
LOC: ERS 11:32
DX: S92.514A Nondisplaced fracture of proximal phalanx of right lesser toe(s), initial encounter for closed fracture (principal); M25.572 Pain in left ankle and joints of left foot; E78.5 Hyperlipidemia, unspecified; I10 Essential (primary) hypertension; F17.200 Nicotine dependence, unspecified, uncomplicated; X58.XXXA Exposure to other specified factors, initial encounter

== ENCOUNTER 2025-05-13 10:55 | Outpatient (CLI) | payer MEDICARE, BC | END 2025-05-13 10:56 | disposition home or self-care (01) | LOC: BICCT 10:55 | PROVIDERS: ATTEND Family Medicine | DX: Z12.2 Encounter for screening for malignant neoplasm of respiratory organs (principal); F17.210 Nicotine dependence, cigarettes, uncomplicated | CPT/HCPCS: 71271 ==